=== PATIENT | male | born 1935 | race Asian ===

== ENCOUNTER 2016-12-22 08:23 | Outpatient (CLI) | payer OTHER ==
[2016-12-22 09:34] LABS: POTASSIUM 3.8 mmol/L (3.6-5.2); SODIUM 138 mmol/L (136-145)
== END 2016-12-22 09:30 | disposition home or self-care (01) ==
LOC: LABW 08:23
DX: I10 Essential (primary) hypertension (principal); Z12.5 Encounter for screening for malignant neoplasm of prostate
CPT/HCPCS: 36415; 80048; 84153

== ENCOUNTER 2017-03-09 10:34 | Outpatient (CLI) | payer OTHER | END 2017-03-09 11:30 | disposition short-term general hospital (02) | LOC: AMB 10:34 | DX: M79.604 Pain in right leg (principal); M79.89 Other specified soft tissue disorders | CPT/HCPCS: A0425; A0429 ==

== ENCOUNTER 2018-01-10 08:03 | Outpatient (CLI) | payer OTHER ==
[2018-01-10 09:45] LABS: POTASSIUM 3.9 mmol/L (3.6-5.2)
== END 2018-01-10 19:46 | disposition home or self-care (01) ==
LOC: LABW 08:03
DX: I10 Essential (primary) hypertension (principal); E78.4 Other hyperlipidemia; Z12.5 Encounter for screening for malignant neoplasm of prostate
CPT/HCPCS: 36415; 80053; 80061; 84153

== ENCOUNTER 2023-02-10 11:03 | Day surgery (SDC) | payer OTHER ==
[~2023-02-10] VITALS: Ht 165.1 cm; Wt 68.0 kg
== END 2023-02-10 13:40 | disposition home or self-care (01) ==
LOC: OR 11:03
PROVIDERS: ATTEND Internal Medicine Gastroenterology
PROC: 0DJD8ZZ Inspection of Lower Intestinal Tract, Via Natural or Artificial Opening Endoscopic (ICD-10-PCS; principal; 2023-02-10)
DX: R93.5 Abnormal findings on diagnostic imaging of other abdominal regions, including retroperitoneum (principal); K64.0 First degree hemorrhoids
CPT/HCPCS: J2704; J7120

== ENCOUNTER 2023-03-10 09:56 | Outpatient (CLI) | payer OTHER | END 2023-03-10 19:06 | disposition home or self-care (01) | LOC: RAD 09:56 | PROVIDERS: ATTEND Internal Medicine Gastroenterology | DX: R93.3 Abnormal findings on diagnostic imaging of other parts of digestive tract (principal) ==